=== PATIENT | male | born 2000 | race Caucasian/White ===

== ENCOUNTER 2023-07-25 14:26 | Emergency (ER) | payer BC ==
[2023-07-25] MEDS ORDERED: Ibuprofen 200 MG TAB ONE (14:52)
[2023-07-25 15:45] LABS: Influenza A by NAA Not Detected (NotDetected); Influenza B by NAA Not Detected (NotDetected); SARS-CoV-2 NAA Rapid Test Not Detected (NotDetected)
== END 2023-07-25 16:03 | disposition home or self-care (01) ==
LOC: MADERS 14:26 → EDBD 14:26 → MADERS 16:03
DX: B34.9 Viral infection, unspecified (principal)
CPT/HCPCS: 99284